=== PATIENT | male | born 1975 | race Two or more races ===

== ENCOUNTER 2018-06-28 12:58 | Inpatient (IN) | payer OTHER ==
[~2018-06-28] VITALS: Ht 180.3 cm; Wt 94.9 kg
[2018-06-28] MEDS ORDERED: ONDANSETRON HCL 4 MG/2 ML VIAL ONE (13:15)
[2018-06-28] MEDS ORDERED: ONDANSETRON HCL 4 MG/2 ML VIAL IV ONE ×2 (13:30→17:15)
[2018-06-28] MEDS ORDERED: SODIUM CHLORIDE 0.9% 1,000 ML IV ONE (13:30)
[2018-06-28 14:08] LABS: Albumin 4.1 g/dL (3.4-5.0); Calcium 9.7 mg/dL (8.5-10.1); Potassium 4.4 mmol/L (3.5-5.1)
[2018-06-28 14:14] LABS: Basophils # (auto) 0.1 uL; Basophils % (auto) 0.4 % (0.0-2.0); Eosinophils # (auto) 0.2 uL; Eosinophils % (auto) 0.9 % (0.0-7.0); Hematocrit 51.8 % (41.0-53.0); Hemoglobin 17.8 g/dL (13.5-17.5); Lymphocytes # (auto) 1.7 uL; Lymphocytes % (auto) 8.1 % (10.0-50.0); Mean Corpuscular Hemoglobin 30.1 pg (28.0-32.0); Mean Corpuscular Hgb Conc. 34.3 g/dL (32.0-36.0); Mean Corpuscular Volume 87.6 fL (80.0-100.0); Monocytes # (auto) 2.1 uL; Monocytes % (auto) 9.7 % (0.0-12.0); Neutrophils # (auto) 17.4 uL; Neutrophils % (auto) 80.9 % (37.0-80.0); Nucleated Red Blood Cells % 0.1 %; Platelet Count (auto) 373 10^3/uL (140-450); Red Blood Cells 5.91 10^6/uL (4.5-5.90); Red Cell Distribution Width 12.4 % (11.8-14.3); White Blood Cell 21.5 10^3/uL (4.4-10.8)
[2018-06-28 14:17] LABS: BUN/Creatinine Ratio 12.6; Bilirubin, Total 1.4 mg/dL (0.2-1.0); Total Protein 9.1 g/dL (6.4-8.2)
[2018-06-28] MEDS ORDERED: SODIUM CHLORIDE 0.9% 1,000 ML IVB ONE (14:48)
[2018-06-28] MEDS ORDERED: MORPHINE SULF INJ 2 MG/ML SYRINGE 1ML IV ONE ×2 (15:00→17:15)
[2018-06-28] MEDS ORDERED: PROMETHAZINE HCL 25 MG/ML 1ML IV ONE (15:00)
[2018-06-28 15:43] LABS: Urine Bacteria NONE SEEN /hpf (None Seen); Urine Blood Negative /uL (Negative); Urine Hyaline Cast FEW /lpf (0 - 2); Urine Mucus FEW (None Seen); Urine Specific Gravity 1.023 (1.001-1.035); Urine WBC 1 /hpf (0 - 3)
[2018-06-28] MEDS ORDERED: SODIUM CHLORIDE 0.9% 1,000 ML IV SCH (22:00)
[2018-06-28] MEDS ORDERED: SODIUM CHLORIDE 0.9% 500 ML IV ONE (22:00)
[2018-06-28] MEDS ORDERED: cefTRIAXone 1GM/50ML D5W 50 ML IV ONE (22:00)
[2018-06-28 23:30] VITALS: BP 138/85
--- NOTE | 2018-06-28 23:30 | NUR ---
MS admit from ER MELANIA CHRISTIANSEN admitted to [facility]. Patient oriented to DESTINI GAFFNEY [facility], primary RN, unit, room, bed, and unit policies regarding patient care and visiting hours. Patient weighed by bedscale and encouraged to call if they need something. All questions and concerns addressed, patient verbalized understanding. Bed in lowest locked position, call light within reach, side rails up x2. Will continue to monitor Q1hr and PRN.
[2018-06-29 00:11] VITALS: BP 138/83
[2018-06-29 05:16] VITALS: BP 117/57
[2018-06-29 05:57] LABS: Basophils # (auto) 0 uL; Basophils % (auto) 0.4 % (0.0-2.0); Eosinophils # (auto) 0.3 uL; Eosinophils % (auto) 3.2 % (0.0-7.0); Hemoglobin 14.7 g/dL (13.5-17.5); Lymphocytes # (auto) 1.1 uL; Lymphocytes % (auto) 10.4 % (10.0-50.0); Mean Corpuscular Hemoglobin 30.8 pg (28.0-32.0); Mean Corpuscular Volume 87.9 fL (80.0-100.0); Monocytes # (auto) 1.1 uL; Neutrophils # (auto) 8.2 uL; Nucleated Red Blood Cells % 0.1 %; Platelet Count (auto) 217 10^3/uL (140-450); Red Blood Cells 4.78 10^6/uL (4.5-5.90); Red Cell Distribution Width 12.4 % (11.8-14.3); White Blood Cell 10.8 10^3/uL (4.4-10.8)
[2018-06-29 06:17] LABS: Potassium 3.4 mmol/L (3.5-5.1)
[2018-06-29 06:29] LABS: Albumin 3.1 g/dL (3.4-5.0); BUN/Creatinine Ratio 9.2; Bilirubin, Total 1.1 mg/dL (0.2-1.0); Calcium 7.8 mg/dL (8.5-10.1); Total Protein 6.8 g/dL (6.4-8.2)
--- NOTE | 2018-06-29 07:10 | NUR ---
Opening Note Received report from geospatial image analyst RN. Patient is awake, alert and oriented x4. No signs or symptoms of distress noted at this time. Patient states abdominal pain, refusing medications at this time. Reviewed plan of care, patient verbalized understanding. Bed in low and locked position, call light within reach. Will continue to monitor Q1 hour and PRN.
[2018-06-29 08:00] VITALS: BP 126/76
[2018-06-29] MEDS: MORPHINE SULFATE 4 MG/ML SYR/VIAL IV PRN ×2 (08:34→13:28)
[2018-06-29] MEDS: PANTOPRAZOLE 40 MG/10 ML VIAL IV SCH (08:34)
[2018-06-29] MEDS: ONDANSETRON HCL 4 MG/2 ML VIAL IV PRN ×2 (08:42→13:28)
[2018-06-29] MEDS ORDERED: cefTRIAXone 1GM/50ML D5W 50 ML IV SCH (09:00)
--- NOTE | 2018-06-29 10:50 | NUR ---
PATIENT AMBULATED Patient ambulated in hallway. Gait steady. Patient tolerated well
--- NOTE | 2018-06-29 11:49 | NUR ---
DR. CLAUDIO AT BEDSIDE Dr. Claudio at bedside reviewing plan of care with patient.
--- NOTE | 2018-06-29 11:50 | NUR ---
FAMILY AT BEDSIDE
[2018-06-29 12:00] VITALS: BP 131/83
[2018-06-29] MEDS ORDERED: THIAMINE 100mg/ml INJ (200mg/2ml VIAL) IV ONE (12:00)
[2018-06-29 12:28] LABS: Cholesterol 195 mg/dL (< 200); HDL Cholesterol 31 mg/dL (40-59); Triglycerides 614 mg/dL (< 150)
[2018-06-29] MEDS: SOD CHL 0.9%/ KCL 20MEQ 1,000 ML IV SCH ×2 (13:29→21:48)
[2018-06-29 16:00] VITALS: BP 148/88
--- NOTE | 2018-06-29 19:15 | NUR ---
Closing Note Report given to static balancer RN. No signs or symptoms of distress noted at this time
--- NOTE | 2018-06-29 19:50 | NUR ---
Opening Shift Note Assumed care of patient, awake and alert. No S/S of distress/SOB or pain. Instructed on POC and to call for assist PRN. Bed in lowest locked position, call light within reach, side rails up x2. Will continue to monitor for changes Q1hr and PRN.
[2018-06-29 22:00] VITALS: BP 131/79
[2018-06-30 05:00] VITALS: BP 134/65
[2018-06-30 06:44] LABS: Basophils # (auto) 0.1 uL; Basophils % (auto) 0.5 % (0.0-2.0); Eosinophils # (auto) 0.5 uL; Eosinophils % (auto) 4.6 % (0.0-7.0); Hematocrit 42.6 % (41.0-53.0); Hemoglobin 15.1 g/dL (13.5-17.5); Lymphocytes # (auto) 1.1 uL; Lymphocytes % (auto) 11.2 % (10.0-50.0); Mean Corpuscular Hemoglobin 30.9 pg (28.0-32.0); Mean Corpuscular Hgb Conc. 35.4 g/dL (32.0-36.0); Mean Corpuscular Volume 87.2 fL (80.0-100.0); Monocytes # (auto) 1.2 uL; Monocytes % (auto) 12.1 % (0.0-12.0); Neutrophils # (auto) 7.3 uL; Neutrophils % (auto) 71.6 % (37.0-80.0); Nucleated Red Blood Cells % 0.2 %; Platelet Count (auto) 213 10^3/uL (140-450); Red Blood Cells 4.88 10^6/uL (4.5-5.90); Red Cell Distribution Width 12.3 % (11.8-14.3); White Blood Cell 10.2 10^3/uL (4.4-10.8)
[2018-06-30] MEDS: SOD CHL 0.9%/ KCL 20MEQ 1,000 ML IV SCH ×2 (06:45→21:23)
[2018-06-30 06:59] LABS: INR 0.93 (0.9-1.15); Partial Thromboplastin Time 30.3 sec (23.78-33.04)
[2018-06-30 07:02] LABS: BUN/Creatinine Ratio 5.8; Calcium 8.6 mg/dL (8.5-10.1); Potassium 3.6 mmol/L (3.5-5.1)
[2018-06-30 08:26] VITALS: BP 131/87
[2018-06-30] MEDS: THIAMINE 100mg/ml INJ (200mg/2ml VIAL) IV SCH (09:33)
[2018-06-30] MEDS: PANTOPRAZOLE 40 MG/10 ML VIAL IV SCH (09:33)
[2018-06-30 13:20] VITALS: BP 139/86
[2018-06-30 16:42] VITALS: BP 137/81
--- NOTE | 2018-06-30 19:30 | NUR ---
OPENING NOTE REPORT RECEIVED FROM DAY SHIFT RN PATIENT IS RESTING IN BED, NO S/S OF DISTRESS. PATIENT DENIES ANY PAIN. PHYSICAL ASSESSMENT DONE-SEE INTERVENTIONS. POC FOR TONIGHT DISCUSSED, ALL QUESTIONS ANSWERED. WILL MONITOR Q1H PRN THROUGHOUT SHIFT, CALL LIGHT WITHIN REACH.
[2018-06-30 21:30] VITALS: BP 144/92
[2018-07-01 04:30] VITALS: BP 109/72
[2018-07-01] MEDS: SOD CHL 0.9%/ KCL 20MEQ 1,000 ML IV SCH ×3 (05:40→21:48)
[2018-07-01 07:04] LABS: Basophils # (auto) 0 uL; Basophils % (auto) 0.4 % (0.0-2.0); Eosinophils # (auto) 0.4 uL; Eosinophils % (auto) 5.4 % (0.0-7.0); Hematocrit 43.6 % (41.0-53.0); Hemoglobin 15.1 g/dL (13.5-17.5); Lymphocytes # (auto) 0.9 uL; Lymphocytes % (auto) 12.1 % (10.0-50.0); Mean Corpuscular Hemoglobin 30.5 pg (28.0-32.0); Mean Corpuscular Hgb Conc. 34.6 g/dL (32.0-36.0); Mean Corpuscular Volume 88.2 fL (80.0-100.0); Monocytes % (auto) 12.9 % (0.0-12.0); Neutrophils # (auto) 5.2 uL; Neutrophils % (auto) 69.2 % (37.0-80.0); Nucleated Red Blood Cells % 0.1 %; Platelet Count (auto) 227 10^3/uL (140-450); Red Blood Cells 4.95 10^6/uL (4.5-5.90); Red Cell Distribution Width 12.8 % (11.8-14.3); White Blood Cell 7.5 10^3/uL (4.4-10.8)
[2018-07-01 07:10] LABS: BUN/Creatinine Ratio 5.2; Calcium 9.3 mg/dL (8.5-10.1); Magnesium 2.3 mg/dL (1.6-2.6); Potassium 3.8 mmol/L (3.5-5.1)
--- NOTE | 2018-07-01 07:14 | NUR ---
CLOSING NOTE REPORT ENDORSED TO DAY SHIFT MANPREET LOPEZ PATIENT IS SLEEPING, NO S/S OF DISTRESS NOTED CALL LIGHT WITHIN REACH
[2018-07-01 08:30] VITALS: BP 114/73
[2018-07-01] MEDS: PANTOPRAZOLE 40 MG/10 ML VIAL IV SCH (09:39)
[2018-07-01] MEDS: THIAMINE 100mg/ml INJ (200mg/2ml VIAL) IV SCH (09:40)
[2018-07-01 13:00] VITALS: BP 130/83
[2018-07-01 17:00] VITALS: BP 136/84
--- NOTE | 2018-07-01 19:25 | NUR ---
OPENING NOTE REPORT RECEIVED FROM DAY SHIFT RN PATIENT IS RESTING IN BED, NO S/S OF DISTRESS. PATIENT DENIES ANY PAIN. PHYSICAL ASSESSMENT DONE-SEE INTERVENTIONS. POC FOR TONIGHT DISCUSSED, ALL QUESTIONS ANSWERED. PATIENT FOR POSSIBLE DISCHARGE TOMORROW.WILL MONITOR Q1H PRN THROUGHOUT SHIFT, CALL LIGHT WITHIN REACH.
[2018-07-01 22:00] VITALS: BP 138/87
[2018-07-02 05:00] VITALS: BP 99/77
[2018-07-02] MEDS: SOD CHL 0.9%/ KCL 20MEQ 1,000 ML IV SCH ×3 (06:15→23:42)
--- NOTE | 2018-07-02 07:04 | NUR ---
CLOSING NOTE REPORT ENDORSED TO DAY SHIFT RN PATIENT IS SLEEPING AT THIS TIME. NO S/S OF DISTRESS CALL LIGHT WITHIN REACH
--- NOTE | 2018-07-02 07:22 | NUR ---
Opening Shift Note Assumed care of patient, awake and alert. No S/S of distress/SOB or pain. Instructed on POC and to call for assist PRN, will continue to monitor for changes Q1hr and PRN.
[2018-07-02 08:00] VITALS: BP 120/82
[2018-07-02] MEDS: PANTOPRAZOLE 40 MG/10 ML VIAL IV SCH (10:25)
[2018-07-02] MEDS: THIAMINE 100mg/ml INJ (200mg/2ml VIAL) IV SCH (10:25)
[2018-07-02 12:30] VITALS: BP 125/89
--- NOTE | 2018-07-02 15:43 | NUR ---
NUTRITION ASSESSMENT NOTES Please refer to link notes of nutrition screen form filed under the intervention section of the plan of care for further details. Est. Needs: 1850 kcal to 2350 kcal (20-25 kcal/kgBW), 75 gms to 94 gms pro (0.8-1.0 gms/kgBW). Will continue to monitor pertinent labs and reassess nutrient need prn Thank you. Addendum: 07/02/18 at [address] Amended: Links added.
[2018-07-02 17:00] VITALS: BP 130/94
--- NOTE | 2018-07-02 19:15 | NUR ---
Opening Shift Note Received report from Elizabeth CASE. Assumed care of patient, awake and alert. No S/S of distress/SOB or pain. Instructed on POC and to call for assist PRN, will continue to monitor for changes Q1hr and PRN.
--- NOTE | 2018-07-02 19:19 | NUR ---
Change of shift given to sorting grapple operator RN. No distress noted.
[2018-07-03 05:00] VITALS: BP 136/63
[2018-07-03 09:00] VITALS: BP 128/78
[2018-07-03] MEDS: PANTOPRAZOLE 40 MG/10 ML VIAL IV SCH (09:43)
[2018-07-03] MEDS: THIAMINE 100mg/ml INJ (200mg/2ml VIAL) IV SCH (09:43)
[2018-07-03] MEDS: SOD CHL 0.9%/ KCL 20MEQ 1,000 ML IV SCH (09:43)
[2018-07-03 12:00] VITALS: BP 132/85
--- NOTE | 2018-07-03 12:49 | NUR ---
Discharge instructions given as ordered. Encourage to follow up with PMD as instructed. All questions and concerns addressed. Patient verbalized understanding. Medication reconciliation form completed and copy given to patient. Patient denies Home medications held in Pharmacy. IV removed with catheter intact, pressure dressing applied. Patient taken to vehicle via wheelchair with all personal belongings, accompanied by staff and family member. No distress noted at time of departure.
== END 2018-07-03 12:53 | disposition home or self-care (01) | DRG 438 ==
LOC: ER 13:01 → OVERFLOW 21:51 → CENTRAL 23:26
PROVIDERS: ADMIT Nurse Practitioner; ATTEND Internal Medicine
DX: K85.90 Acute pancreatitis without necrosis or infection, unspecified (principal); N17.0 Acute kidney failure with tubular necrosis; R65.10 Systemic inflammatory response syndrome (SIRS) of non-infectious origin without acute organ dysfunction; E78.1 Pure hyperglyceridemia; F10.10 Alcohol abuse, uncomplicated; M47.9 Spondylosis, unspecified; Z82.49 Family history of ischemic heart disease and other diseases of the circulatory system; Z79.899 Other long term (current) drug therapy
CPT/HCPCS: 36415; 71045; 74176; 76705; 80048; 80053; 80061; 81001; 82150; 83605; 83690; 83735; 85025; 85610; 85730; 87040; 87086; 94761; 96361; 96365; 96375; C9113; G0378; J0696; J2405

== ENCOUNTER 2023-09-25 18:26 | Emergency (ER) | payer OTHER ==
[~2023-09-25] VITALS: Ht 180.3 cm; Wt 92.7 kg
[2023-09-25 19:19] LABS: Basophils # (auto) 0.1 10 ^3/uL (0-0.2); Basophils % (auto) 0.7 % (0.0-2.0); Eosinophils # (auto) 0.1 10 ^3/uL (0-0.8); Eosinophils % (auto) 0.7 % (0.0-7.0); Hematocrit 50.4 % (41.0-53.0); Hemoglobin 17.9 g/dL (13.5-17.5); Lymphocytes # (auto) 1.6 10 ^3/uL (0.4-5.4); Lymphocytes % (auto) 12.3 % (10.0-50.0); Mean Corpuscular Hemoglobin 30.7 pg (28.0-32.0); Mean Corpuscular Hgb Conc. 35.5 g/dL (32.0-36.0); Mean Corpuscular Volume 86.5 fL (80.0-100.0); Monocytes # (auto) 1.2 10 ^3/uL (0-1.3); Monocytes % (auto) 9.5 % (0.0-12.0); Neutrophils % (auto) 76.8 % (37.0-80.0); Nucleated Red Blood Cells % 0.1 %; Red Blood Cells 5.82 10^6/uL (4.5-5.90); Red Cell Distribution Width 13.1 % (11.8-14.3)
[2023-09-25 20:06] LABS: Chloride 103 mmol/L (98-107); Potassium 4.2 mmol/L (3.5-5.1); Sodium 135 mmol/L (136-145)
[2023-09-25 20:07] LABS: Anion Gap 10 (5-15); Carbon Dioxide 22 mmol/L (20-30)
[2023-09-25 20:08] LABS: Calcium 10.7 mg/dL (8.7-10.4)
[2023-09-25 20:13] LABS: BUN/Creatinine Ratio 14.3 (10.0-20.0); Blood Urea Nitrogen 17 mg/dL (9-23); Glucose 96 mg/dL (74-106)
[2023-09-25] MEDS: IOHEXOL 300 MG/ML 100ML BOTTLE IJ ONE (20:24)
[2023-09-25 22:00] VITALS: PULSE 96; RESP 20; TEMP 98.3; O2SAT 97
[2023-09-25] MEDS: ONDANSETRON HCL 4 MG/2 ML VIAL IV ONE (22:05)
[2023-09-25] MEDS: SODIUM CHLORIDE 0.9% 1,000 ML IV ONE (22:06)
[2023-09-25] MEDS: MORPHINE SULFATE 4 MG/ML SYR/VIAL IV ONE (22:06)
[2023-09-25 22:36] VITALS: BP 138/85; PULSE 95; RESP 16
[2023-09-25] MEDS ORDERED: CYCL-839 PO (22:41)
[2023-09-25] MEDS: CYCLOBENZAPRINE HCL 10 MG TAB PO ONE (22:50)
== END 2023-09-25 23:13 | disposition home or self-care (01) ==
LOC: ER 18:26
DX: S29.011A Strain of muscle and tendon of front wall of thorax, initial encounter (principal); M54.6 Pain in thoracic spine; X58.XXXA Exposure to other specified factors, initial encounter; Y93.89 Activity, other specified; Y92.89 Other specified places as the place of occurrence of the external cause; Y99.8 Other external cause status
CPT/HCPCS: 36415; 71045; 71275; 80048; 84484; 85025; 85379; 96361; 96374; 96375; 99285; J2270; J2405; J7030; Q9967

== ENCOUNTER 2023-09-27 07:09 | Emergency (ER) | payer OTHER ==
[~2023-09-27] VITALS: Ht 175.3 cm; Wt 91.5 kg
[~2023-09-27 07:09] MED LIST: CYCL-839 PO
[2023-09-27] MEDS: SODIUM CHLORIDE 0.9% 1,000 ML IVB ONE (09:21)
[2023-09-27] MEDS: ACETAMINOPHEN 325 MG TAB PO ONE (09:25)
[2023-09-27] MEDS: KETOROLAC TROMETH 30 MG/ML 1ML VIAL IV ONE (09:41)
[2023-09-27] MEDS: ONDANSETRON HCL 4 MG/2 ML VIAL IV ONE (09:41)
[2023-09-27] MEDS: HYDROmorphone HCL 2 MG/ML VL/or syr IV ONE (09:42)
[2023-09-27 09:45] LABS: Basophils # (auto) 0 10 ^3/uL (0-0.2); Basophils % (auto) 0.4 % (0.0-2.0); Eosinophils # (auto) 0.1 10 ^3/uL (0-0.8); Eosinophils % (auto) 0.5 % (0.0-7.0); Hematocrit 45.7 % (41.0-53.0); Hemoglobin 16.1 g/dL (13.5-17.5); Lymphocytes % (auto) 7.2 % (10.0-50.0); Mean Corpuscular Hemoglobin 30.9 pg (28.0-32.0); Mean Corpuscular Hgb Conc. 35.3 g/dL (32.0-36.0); Mean Corpuscular Volume 87.7 fL (80.0-100.0); Monocytes # (auto) 1.7 10 ^3/uL (0-1.3); Monocytes % (auto) 13.1 % (0.0-12.0); Neutrophils # (auto) 10.5 10 ^3/uL (1.6-8.6); Neutrophils % (auto) 78.8 % (37.0-80.0); Nucleated Red Blood Cells % 0.1 %; Red Blood Cells 5.22 10^6/uL (4.5-5.90); Red Cell Distribution Width 13.1 % (11.8-14.3); White Blood Cell 13.3 10^3/uL (4.4-10.8)
[2023-09-27 10:17] LABS: Alanine Aminotransferase 40 U/L (7-40); Albumin 4.8 g/dL (3.2-4.8); Alkaline Phosphatase 75 U/L (46-116); Anion Gap 6 (5-15); Aspartate Aminotransferase 34 U/L (13-40); BUN/Creatinine Ratio 5.8 (10.0-20.0); Bilirubin, Total 2.6 mg/dL (0.2-1.0); Calcium 10.1 mg/dL (8.5-10.1); Carbon Dioxide 25 mmol/L (20-30); Chloride 103 mmol/L (98-107); Glucose 101 mg/dL (74-106); Potassium 3.8 mmol/L (3.5-5.1); Sodium 134 mmol/L (136-145)
[2023-09-27 10:18] LABS: Blood Urea Nitrogen 7 mg/dL (9-23)
[2023-09-27 11:00] LABS: Lipase 39 U/L (12-53)
[2023-09-27 11:32] LABS: INR 1.03 (0.9-1.15); Partial Thromboplastin Time 29.6 SEC (24.5-34.5); Prothrombin Time 10.9 sec (9.3-11.8)
[2023-09-27 11:45] LABS: Urine Bacteria None Seen /hpf (None Seen)
[2023-09-27] MEDS: METOCLOPRAMIDE HCL 5MG/ml INJ 2ml VIAL IV ONE (11:48)
[2023-09-27] MEDS ORDERED: HYDR-4902 PO (11:59)
[2023-09-27] MEDS ORDERED: METO-281 PO (11:59)
[2023-09-27 12:00] LABS: Urine Blood Negative /uL (Negative); Urine Clarity Clear (Clear); Urine Color Light-Orange (Yellow); Urine Mucus FEW (None Seen); Urine Protein, UAD TRACE (Negative); Urine Specific Gravity 1.019 (1.001-1.035); Urine Urobilinogen Normal (Negative); Urine WBC 1 /hpf (0 - 3); Urine pH 5.5 (5.0-9.0)
[2023-09-27 12:45] VITALS: BP 118/74; PULSE 72; RESP 18; TEMP 98.4; O2SAT 96
== END 2023-09-27 12:46 | disposition home or self-care (01) ==
LOC: ER 07:09
DX: K56.7 Ileus, unspecified (principal); Z88.6 Allergy status to analgesic agent
CPT/HCPCS: 36415; 71045; 74176; 76705; 80053; 81001; 83605; 83690; 84484; 85025; 85610; 85730; 96361; 96374; 96375; 99285; J1170; J1885; J2405; J2765; J7030